=== PATIENT | male | born 1975 ===

== ENCOUNTER 2017-04-07 00:40 | Inpatient (IN) | payer MEDICARE, BC ==
[2017-04-07] MEDS ORDERED: Dextrose 50% SYRINGE Inj (50 ml) ONE (00:59)
[2017-04-07] MEDS ORDERED: Dextrose 50% SYRINGE Inj (50 ml) IV STA (01:00)
[2017-04-07 01:39] LABS: BASO # 0.1 K/uL (0.0-0.2); EOS # 0.1 K/uL (0.0-0.7); HEMATOCRIT 22.8 % (35.0-51.0); LYMPH # 0.8 K/uL (1.0-4.3); LYMPH % 11.9 % (20.0-40.0); MEAN CELL VOLUME 95.2 fL (80.0-94.0); MEAN CORPUSCULAR HEMOGLOBIN 31.2 pg (27.0-31.0); MEAN CORPUSCULAR HGB CONC 32.8 g/dL (33.0-37.0); MEAN PLATELET VOLUME 7.7 fL (7.2-11.7); MONO # 0.5 K/uL (0.0-0.8); MONO % 7.3 % (0.0-10.0); RED CELL DISTRIBUTION WIDTH 14.7 % (11.5-14.5); WHITE BLOOD COUNT 6.3 K/uL (4.8-10.8)
[2017-04-07 01:52] LABS: ALCOHOL SERUM < 10 mg/dl (0-10); ALKALINE PHOSPHATASE 35 U/L (38-126); ALT/SGPT 30 U/L (21-72); AST/SGOT 18 U/L (17-59); BILIRUBIN,TOTAL 0.2 mg/dL (0.2-1.3); BLOOD UREA NITROGEN 24 mg/dL (9-20); CARBON DIOXIDE 15 mmol/L (22-30); CHLORIDE 113 mmol/L (98-107); GFR AFRICAN-AMERICAN 14; GLUCOSE,RANDOM 79 mg/dL (75-110); SODIUM 143 mmol/L (132-148); TOTAL PROTEIN 4.2 g/dL (6.3-8.3)
[2017-04-07 01:58] LABS: POTASSIUM 2.3 mmol/L (3.6-5.2)
[2017-04-07 01:59] LABS: CALCIUM 5.3 mg/dl (8.6-10.4)
[2017-04-07 02:39] LABS: POTASSIUM 4.6 mmol/L (3.6-5.2)
[2017-04-07 02:43] LABS: CALCIUM 9.4 mg/dl (8.6-10.4)
[2017-04-07] MEDS ORDERED: Nitroglycerin 2% Ointment Foilpak UD TOP STA (04:32)
[2017-04-07] MEDS ORDERED: Nitroglycerin 2% Ointment Foilpak UD TOP ONE (04:52)
--- NOTE | 2017-04-07 05:08 | C.PDOC ---
History Of Present Illness Pt states that his glucose was dropping at home tonight so he turned off his insulin pump and ate some cookies, but his glucose continued to drop nonetheless. EMS were called, but they thought his AMS is due to drug abuse. Pt was taken to [facility] but EMS was informed that the hospital was on diversion so they brought him here. Here we found him to be hypoglycemic and we gave him D50 with improvement in mental status. 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) Current Symptoms Are (Timing): Still Present Usual Baseline: Alert Oriented, Ambulatory Exacerbating Factor(s): Diabetic Severity: Moderate Additional History Per: Prior Records Associated Symptoms: Disoriented, Confused, Agitated Past Medical History Reviewed: Historical Data, Nursing Documentation, Vital Signs Vital Signs: Last Vital Signs Temp 98.1 F 04/07/17 04:33 Pulse 106 H 04/07/17 04:33 Resp 23 04/07/17 04:33 BP 180/81 H 04/07/17 04:33 Pulse Ox 95 04/07/17 04:33 - Medical History PMH: Anemia, Anxiety, Depression, Diabetes (Types I), HTN, Hypercholesterolemia , End Stage Renal Disease (on dialysis), Chronic Kidney Disease - [facility] Procedures HEMODIALYSIS (12/22/14) OTHER SKIN & SUBQ I D (04/19/15) PACKED CELL TRANSFUSION (12/22/14) PERFORMANCE OF URINARY FILTRATION, MULTIPLE (08/29/16) PERFORMANCE OF URINARY FILTRATION, SINGLE (12/18/16) REMOV THOR THER DEV NEC (12/22/14) VACCINATION NEC (12/22/14) VENOUS CATHETERIZATION FOR RENAL DIALYSIS (12/22/14) Family History: States: Unknown Family Hx - Social History Hx Tobacco Use: Yes Hx Alcohol Use: No Hx Substance Use: Yes (Smokes Marijuana) Review Of Systems Except As Marked, All Systems Reviewed And Found Negative. Constitutional: Negative for: Fever Respiratory: Negative for: Shortness of Breath Gastrointestinal: Negative for: Abdominal Pain Musculoskeletal: Negative for: Neck Pain Skin: Negative for: Rash Neurological: Negative for: Weakness, Numbness, Headache Physical Exam - Physical Exam Appears: In Acute Distress, Chronically Ill Skin: Normal Color, Warm, Dry Head: Atraumatic, Normacephalic Eye(s): bilateral: PERRL, EOMI Neck: Normal ROM, Supple Cardiovascular: Rhythm Regular Respiratory: Normal Breath Sounds, No Accessory Muscle Use Gastrointestinal/Abdominal: Soft, No Tenderness Back: No CVA Tenderness Extremity: Normal ROM, Other (Dialysis fistula in left arm) Neurological/Psych: Oriented x3, Normal Motor, Normal Sensation ED Course And Treatment - Laboratory Results Result Diagrams: 04/07/17 01:35 04/07/17 02:29 Lab Interpretation: Abnormal Interpretation Of Abnormal: Renal failure. ECG: Interpreted By Me, Viewed By Me ECG Rhythm: Sinus Rhythm, Nonspecific Changes ECG Interpretation: No Acute Changes Rate From EC O2 Sat by Pulse Oximetry: 95 Pulse Ox Interpretation: Normal - Radiology CXR: Interpreted by Me, Viewed By Me CXR Interpretation: Yes: No Acute Disease Progress Note: During ED stay pt started c/o chest pain. EKG was repeated and showed sinus tachycardia at 117bpm but no ischemic changes. Progress - Interventions Interventions:: Observation, Oxygen - Medications Administered Oral: Aspirin Intravenous: Antiemetic, Other (D50) - Data Reviewed Data Reviewed: Lab, Diagnostic imaging, EKG, Old records - Critical Care Citical Care: Excluding Proc Time Critical Care Time: 60 minutes - Continuity of Care Discussed patient case with:: Patient, Family-HIPPA compliant, ED Nurse, On- call PMD-pt unassigned Disposition Discussed With : Ish Garcia Comment: He accepted pt on his service and gave admitting orders to the nurse. Doctor Will See Patient In The: Hospital Counseled Patient/Family Regarding: Studies Performed, Diagnosis - Disposition Disposition: HOSPITALIZED Disposition Time: 05:13 Condition: GUARDED - Clinical Impression Clinical Impression: Hypoglycemia, ESRD (end stage renal disease) on dialysis, Chest pain, Diabetes type I
[2017-04-07] MEDS: (Novolog) Insulin Aspart, Recombinant 100 u/ml 10 ml vial SC SCH ×6 (06:20→23:45)
[2017-04-07] MEDS ORDERED: (Novolog) Insulin Aspart, Recombinant 100 u/ml 10 ml vial ONE ×3 (06:24→15:36)
--- NOTE | 2017-04-07 08:51 | RAD ---
HISTORY: Hypoglycemia. ESRD COMPARISON: No prior. TECHNIQUE: Chest PA and lateral FINDINGS: LUNGS: No active pulmonary disease. PLEURA: No significant pleural effusion identified. No pneumothorax apparent. CARDIOVASCULAR: Normal. OSSEOUS STRUCTURES: No significant abnormalities. VISUALIZED UPPER ABDOMEN: Normal. OTHER FINDINGS: None. IMPRESSION: No active disease.
[2017-04-07] MEDS: Pantoprazole 40 mg EC Tab PO SCH (09:49)
--- NOTE | 2017-04-07 13:39 | CP.PCM.CON ---
History of Present Illness - History of Present Illness History of Present Illness: I was asked to see patient by Dr. Garcia. Patient is a 41 year old male with PMH HTN IDDm who presents with syncope. Patient is on insulin pump for DMand has had previous admissions to [facility] for syncope and hypoglycemia. Patient states he was watching a movie when he had a syncopal event. The patient describes a passing out. No preceding chest pain or palpitations were noted. The patient denies trauma. Review of Systems - Constitutional Constitutional: Fatigue, Weakness - EENT Eyes: absent: As Per HPI, Blind Spots, Blurred Vision, Change in Vision, Decreased Night Vision, Diplopia, Discharge, Dry Eye, Exophthalmos, Floaters, Irritation, Itchy Eyes, Loss of Peripheral Vision, Pain, Photophobia, Requires Corrective Lenses, Sees Flashes, Spots in Vision, Tunnel Vision, Other Visual Disturbances, Loss of Vision, Other Ears: absent: As Per HPI, Decreased Hearing, Ear Discharge, Ear Pain, Tinnitus, Abnormal Hearing, Disequilibrium, Dizziness, Other Nose/Mouth/Throat: absent: As Per HPI, Epistaxis, Nasal Congestion, Nasal Discharge, Nasal Obstruction, Nasal Trauma, Nose Pain, Post Nasal Drip, Sinus Pain, Sinus Pressure, Bleeding Gums, Change in Voice, Dental Pain, Dry Mouth, Dysphagia, Halitosis, Hoarsness, Lip Swelling, Mouth Lesions, Mouth Pain, Odynophagia, Sore Throat, Throat Swelling, Tongue Swelling, Facial Pain, Neck Pain, Neck Mass, Other - Cardiovascular Cardiovascular: Syncope - Respiratory Respiratory: absent: As Per HPI, Cough, Dyspnea, Hemoptysis, Dyspnea on Exertion , Wheezing, Snoring, Stridor, Pain on Inspiration, Chest Congestion, Excessive Mucous Production, Change in Mucous Color, Pain with Coughing, Other - Gastrointestinal Gastrointestinal: absent: As Per HPI, Abdominal Pain, Belching, Bloating, Change in Bowel Habits, Change in Stool Character, Coffee Ground Emesis, Constipation, Cramping, Diarrhea, Dyspepsia, Dysphagia, Early Satiety, Excessive Flatus, Fecal Incontinence, Heartburn, Hematemesis, Hematochezia, Loose Stools, Melena, Nausea, Odynophagia, Temesmus, Vomiting, Other - Musculoskeletal Musculoskeletal: absent: As Per HPI, Abnormal Gait, Arthralgias, Atrophy, Back Pain, Deformity, Joint Swelling, Limited Range of Motion, Loss of Height, Muscle Cramps, Muscle Weakness, Myalgias, Neck Pain, Numbness, Radiating Pain into Limb, Stiffness, Tingling, Other - Integumentary Integumentary: absent: As Per HPI, Acne, Alopecia, Bleeding Lesions, Change in Hair, Change in Nails, Change in Pigmentation, Changing Lesions, Dry Skin, Erythema, Furuncle, Hirsutism, Lesions, New Lesions, Non-Healing Lesions, Photosensitivity, Pruritus, Rash, Skin Pain, Skin Ulcer, Sores, Striae, Swelling , Unusual Bruising, Wounds, Jaundice, Other - Neurological Neurological: absent: As Per HPI, Abnormal Gait, Abnormal Hearing, Abnormal Movements, Abnormal Speech, Behavioral Changes, Burning Sensations, Confusion, Convulsions, Disequilibrium, Dizziness, Numbness, Focal Weakness, Frequent Falls , Headaches, Lack of Coordination, Loss of Vision, Memory Loss, Paresthesias, Radicular Pain, Restless Legs, Sensory Deficit, Syncope, Tingling, Tremor, Vertigo, Weakness, Other Visual Disturbances, Other - Psychiatric Psychiatric: absent: As Per HPI, Abnormal Sleep Pattern, Anhedonia, Anxiety, Auditory Hallucinations, Behavioral Changes, Change in Appetite, Change in Libido, Confusion, Depression, Difficulty Concentrating, Hallucinations, Homicidal Ideation, Hopelessness, Irritability, Memory Loss, Mood Swings, Panic Attacks, Paranoia, Suicidal Ideation, Visual Hallucinations, Tactile Hallucinations, Other - Endocrine Endocrine: absent: As Per HPI, Change in Body Appearance, Change in Libido, Cold Intolorance, Deepening of Voice, Excessive Sweating, Fatigue, Flushing, Heat Intolorance, Increase in Ring/Shoe/Hat Size, Palpitations, Polydipsia, Polyphagia, Polyuria, Other - Hematologic/Lymphatic Hematologic: absent: As Per HPI, Easy Bleeding, Easy Bruising, Lymphadenopathy, Other Past Patient History - Infectious Disease Hx of Infectious Diseases: None - Past Medical History & Family History Past Medical History?: Yes - Past Social History Smoking Status: Heavy Smoker > 10 Cigarettes Daily - CARDIAC Hx Hypercholesterolemia: Yes Hx Hypertension: Yes - PULMONARY Hx Asthma: No Hx Bronchitis: No Hx Chronic Obstructive Pulmonary Disease (COPD): No Hx Emphysema: No Hx Pneumonia: No Hx Pulmonary Embolism: No Hx Sleep Apnea: No - NEUROLOGICAL Hx Alzheimer's Disease: No Hx Dementia: No Hx Migraine: No Hx Multiple Sclerosis: No Hx Parkinson's Disease: No Hx Seizures: No Hx Transient Ischemic Attacks (TIA): No - HEENT Hx HEENT Problems: No - RENAL Hx Chronic Kidney Disease: Yes - ENDOCRINE/METABOLIC Hx Hyperthyroidism: No Hx Hypothyroidism: No - HEMATOLOGICAL/ONCOLOGICAL Hx Anemia: Yes - INTEGUMENTARY Hx Dermatological Problems: No Other/Comment: H/O skin abscesses - MUSCULOSKELETAL/RHEUMATOLOGICAL Hx Arthritis: No Hx Fractures: No Hx Osteoporosis: No Hx Rheumatoid Arthritis: No - GASTROINTESTINAL Hx Crohn's Disease: No Hx Diverticulitis: No Hx Gall Bladder Disease: No Hx Gastritis: No Hx Pancreatitis: No - GENITOURINARY/GYNECOLOGICAL Hx Sexually Transmitted Disorders: No - PSYCHIATRIC Hx Anxiety: Yes Hx Depression: Yes Hx Substance Use: Yes (Smokes Marijuana) - SURGICAL HISTORY Hx Appendectomy: No Hx Carotid Endarterectomy: No Hx Cholecystectomy: No Hx Coronary Artery Bypass Graft: No Hx Coronary Stent: No Hx Tonsillectomy: No - ANESTHESIA Hx Anesthesia: Yes Hx Anesthesia Reactions: No Hx Malignant Hyperthermia: No Meds Allergies/Adverse Reactions: Allergies Allergy/AdvReac Type Severity Reaction Status Date / Time Penicillins Allergy RASH Verified 04/07/17 01:06 - Medications Medications: Current Medications Amlodipine Besylate (Norvasc) 10 mg PO DAILY [facility] Last Admin: 04/07/17 09:49 Dose: 10 mg Aspirin (Aspirin Chewable) 81 mg PO DAILY [facility] Last Admin: 04/07/17 09:49 Dose: 81 mg Clonazepam (Klonopin) 0.5 mg PO [facility] Clonazepam (Klonopin) 0.5 mg PO DAILY [facility] Last Admin: 04/07/17 09:49 Dose: 0.5 mg Clonidine HCl (Catapres) 0.1 mg PO [facility] Clopidogrel Bisulfate (Plavix) 75 mg PO DAILY [facility] Last Admin: 04/07/17 10:57 Dose: Not Given Fluoxetine HCl (Prozac) 40 mg PO BID [facility] Last Admin: 04/07/17 12:27 Dose: 40 mg Heparin Sodium (Porcine) (Heparin) 5,000 units SC Q12 [facility] Last Admin: 04/07/17 10:56 Dose: Not Given Insulin Aspart (Novolog) 0 unit SC ACHS [facility] PRN Reason: Protocol Last Admin: 04/07/17 10:20 Dose: 4 unit Insulin Detemir (Levemir) 10 unit SC DAILY [facility] Stop: 10/01/17 10:01 Losartan Potassium (Cozaar) 50 mg PO DAILY [facility] Last Admin: 04/07/17 09:49 Dose: 50 mg Pantoprazole Sodium (Protonix Ec Tab) 40 mg PO DAILY [facility] Last Admin: 04/07/17 09:49 Dose: 40 mg Sevelamer Carbonate (Renvela) 800 mg PO TID [facility] Last Admin: 04/07/17 09:50 Dose: 800 mg Physical Exam - Constitutional Appears: Non-toxic - Head Exam Head Exam: NORMAL INSPECTION - Eye Exam Eye Exam: Normal appearance - ENT Exam ENT Exam: Mucous Membranes Moist - Neck Exam Neck exam: Positive for: Full Rom - Respiratory Exam Respiratory Exam: NORMAL BREATHING PATTERN - Cardiovascular Exam Cardiovascular Exam: REGULAR RHYTHM - GI/Abdominal Exam GI & Abdominal Exam: Normal Bowel Sounds - Rectal Exam Rectal Exam: Deferred - Extremities Exam Extremities exam: Negative for: pedal edema - Back Exam Back exam: NORMAL INSPECTION - Neurological Exam Neurological exam: Alert, Oriented x3 - Psychiatric Exam Psychiatric exam: Normal Affect - Skin Skin Exam: Normal Color Results - Vital Signs Recent Vital Signs: Last Vital Signs Temp 98.1 F 04/07/17 04:33 Pulse 92 H 04/07/17 12:46 Resp 16 04/07/17 12:46 BP 147/78 04/07/17 12:46 Pulse Ox 96 04/07/17 12:46 - Labs Result Diagrams: 04/07/17 01:35 04/07/17 02:29 Labs: Laboratory Results - last 24 hr 04/07/17 04/07/17 04/07/17 05:23 06:06 09:02 PT 11.4 INR 1.0 APTT 32 POC Glucose (mg/dL) 405 H* 279 H Total Creatine Kinase CK-MB (Mass) Troponin I, Quant 04/07/17 04/07/17 04/07/17 09:11 10:15 11:18 PT INR APTT POC Glucose (mg/dL) 339 H 371 H Total Creatine Kinase 1057 H CK-MB (Mass) 10.5 H Troponin I, Quant 0.1100 Assessment & Plan (1) Syncope Assessment and Plan: unclear etiology. admit to telemetry. check echocardiogram Status: Acute (2) Diabetes type I Assessment and Plan: monitor glucose carefully Status: Acute (3) Hypertension Assessment and Plan: blood pressure control Status: Chronic Priority: Low - Date & Time Date: 04/07/17 Time: 14:00
[2017-04-08] MEDS: (Novolog) Insulin Aspart, Recombinant 100 u/ml 10 ml vial SC SCH ×3 (08:15→17:45)
[2017-04-08] MEDS ORDERED: Insulin Detemir 100 units/ml Vial (Levemir) SC SCH (10:00)
[2017-04-08] MEDS: Pantoprazole 40 mg EC Tab PO SCH (10:54)
[2017-04-08 11:37] LABS: BASO % 0.2 % (0.0-2.0); EOS % 0.1 % (0.0-4.0); HEMATOCRIT 32.2 % (35.0-51.0); LYMPH # 1.5 K/uL (1.0-4.3); LYMPH % 9.9 % (20.0-40.0); MEAN CELL VOLUME 93.7 fL (80.0-94.0); MEAN CORPUSCULAR HEMOGLOBIN 31.6 pg (27.0-31.0); MEAN CORPUSCULAR HGB CONC 33.7 g/dL (33.0-37.0); MEAN PLATELET VOLUME 8.4 fL (7.2-11.7); MONO % 6.7 % (0.0-10.0); PLATELET COUNT 229 K/uL (130-400); RED CELL DISTRIBUTION WIDTH 14.7 % (11.5-14.5)
[2017-04-08 11:42] LABS: ALB/GLOB RATIO 1.5 (1.0-2.1); BILIRUBIN,TOTAL 0.6 mg/dL (0.2-1.3); CALCIUM 9.8 mg/dl (8.6-10.4); PHOSPHOROUS 5.8 mg/dL (2.5-4.5); TOTAL PROTEIN 6.8 g/dL (6.3-8.3)
[2017-04-08 11:48] LABS: WHITE BLOOD COUNT 15.2 K/uL (4.8-10.8)
[2017-04-08 11:58] LABS: POTASSIUM 6.5 mmol/L (3.6-5.2)
[2017-04-08] MEDS ORDERED: Sod Polystyrene Sulf 15 gm/60 ml Oral Susp PO STA (12:12)
[2017-04-08 12:19] LABS: TOTAL CELLS COUNTED 100
[2017-04-08 12:20] LABS: NEUTROPHIL 87 % (50-75)
--- NOTE | 2017-04-08 12:26 | CP.PCM.CON ---
History of Present Illness - History of Present Illness History of Present Illness: 41 y/o male with ESRD on maintenance HD MWF, IDDM,HTN was admitted yesterday for hypoglycemia & altered mental status Renal consult is requested for Mx of ESRD Past Patient History - Infectious Disease Hx of Infectious Diseases: None - Past Medical History & Family History Past Medical History?: Yes - Past Social History Smoking Status: Heavy Smoker > 10 Cigarettes Daily - CARDIAC Hx Hypercholesterolemia: Yes Hx Hypertension: Yes - PULMONARY Hx Asthma: No Hx Bronchitis: No Hx Chronic Obstructive Pulmonary Disease (COPD): No Hx Emphysema: No Hx Pneumonia: No Hx Pulmonary Embolism: No Hx Sleep Apnea: No - NEUROLOGICAL Hx Alzheimer's Disease: No Hx Dementia: No Hx Migraine: No Hx Multiple Sclerosis: No Hx Parkinson's Disease: No Hx Seizures: No Hx Transient Ischemic Attacks (TIA): No - HEENT Hx HEENT Problems: No - RENAL Hx Chronic Kidney Disease: Yes Hx Dialysis: Yes Type of Dialysis Access: AVF - ENDOCRINE/METABOLIC Hx Hyperthyroidism: No Hx Hypothyroidism: No - HEMATOLOGICAL/ONCOLOGICAL Hx Anemia: Yes - INTEGUMENTARY Hx Dermatological Problems: No Other/Comment: H/O skin abscesses - MUSCULOSKELETAL/RHEUMATOLOGICAL Hx Arthritis: No Hx Fractures: No Hx Osteoporosis: No Hx Rheumatoid Arthritis: No - GASTROINTESTINAL Hx Crohn's Disease: No Hx Diverticulitis: No Hx Gall Bladder Disease: No Hx Gastritis: No Hx Pancreatitis: No - GENITOURINARY/GYNECOLOGICAL Hx Sexually Transmitted Disorders: No - PSYCHIATRIC Hx Anxiety: Yes Hx Depression: Yes Hx Substance Use: Yes (Smokes Marijuana) - SURGICAL HISTORY Hx Appendectomy: No Hx Carotid Endarterectomy: No Hx Cholecystectomy: No Hx Coronary Artery Bypass Graft: No Hx Coronary Stent: No Hx Tonsillectomy: No - ANESTHESIA Hx Anesthesia: Yes Hx Anesthesia Reactions: No Hx Malignant Hyperthermia: No Meds Home Medications: Home Medication List Medication Instructions Recorded Confirmed Type Aspirin [Aspirin Chewable] 81 mg PO DAILY 04/08/17 Rx Clopidogrel [Plavix] 75 mg PO DAILY tab 04/08/17 Rx Sevelamer Carbonate [Renvela] 2,400 mg PO [facility] tab 04/08/17 Rx Allergies/Adverse Reactions: Allergies Allergy/AdvReac Type Severity Reaction Status Date / Time Penicillins Allergy RASH Verified 04/07/17 01:06 - Medications Medications: Current Medications Amlodipine Besylate (Norvasc) 10 mg PO DAILY [facility] Last Admin: 04/08/17 10:54 Dose: 10 mg Aspirin (Aspirin Chewable) 81 mg PO DAILY [facility] Last Admin: 04/08/17 10:52 Dose: 81 mg Clonazepam (Klonopin) 0.5 mg PO F [facility] Clonazepam (Klonopin) 0.5 mg PO DAILY [facility] Last Admin: 04/08/17 10:54 Dose: 0.5 mg Clonazepam (Klonopin) 0.5 mg PO Q8 PRN PRN Reason: Anxiety Last Admin: 04/07/17 23:45 Dose: 0.5 mg Clonidine HCl (Catapres) 0.1 mg PO HS [facility] Last Admin: 04/07/17 21:21 Dose: 0.1 mg Clopidogrel Bisulfate (Plavix) 75 mg PO DAILY [facility] Last Admin: 04/08/17 10:55 Dose: 75 mg Fluoxetine HCl (Prozac) 40 mg PO BID [facility] Last Admin: 04/08/17 10:55 Dose: 40 mg Heparin Sodium (Porcine) (Heparin) 5,000 units SC Q12 [facility] Last Admin: 04/08/17 11:01 Dose: Not Given Insulin Aspart (Novolog) 0 unit SC [facility] PRN Reason: Protocol Last Admin: 04/08/17 08:15 Dose: 6 unit Insulin Detemir (Levemir) 10 unit SC DAILY [facility] Stop: 04/21/17 10:01 Last Admin: 04/08/17 11:00 Dose: 10 unit Losartan Potassium (Cozaar) 50 mg PO DAILY [facility] Last Admin: 04/08/17 10:53 Dose: Not Given Ondansetron HCl (Zofran Inj) 4 mg IVP Q6 PRN PRN Reason: Nausea/Vomiting Last Admin: 04/08/17 11:00 Dose: 4 mg Pantoprazole Sodium (Protonix Ec Tab) 40 mg PO DAILY [facility] Last Admin: 04/08/17 10:54 Dose: 40 mg Sevelamer Carbonate (Renvela) 2,400 mg PO TIDCC [facility] Last Admin: 04/08/17 08:16 Dose: Not Given Physical Exam - Constitutional Appears: No Acute Distress Additional comments: Alert & orientd - Head Exam Head Exam: ATRAUMATIC, NORMOCEPHALIC - Eye Exam Eye Exam: Normal appearance Additional comments: Sclera anicteric - ENT Exam ENT Exam: Mucous Membranes Moist - Neck Exam Additional comments: Neck supple - Respiratory Exam Respiratory Exam: NORMAL BREATHING PATTERN Additional comments: Lungs clear - Cardiovascular Exam Cardiovascular Exam: REGULAR RHYTHM - GI/Abdominal Exam GI & Abdominal Exam: Soft Additional comments: No tenderness - Extremities Exam Additional comments: No edema or cyanosis Results - Vital Signs Recent Vital Signs: Last Vital Signs Temp 98.2 F 04/08/17 08:03 Pulse 94 H 04/08/17 08:03 Resp 20 04/08/17 08:03 BP 182/75 H 04/08/17 08:03 Pulse Ox 96 04/08/17 08:03 - Labs Result Diagrams: 04/08/17 11:19 04/08/17 11:19 Labs: Laboratory Results - last 24 hr 04/07/17 04/07/17 04/07/17 14:14 14:53 15:37 WBC RBC Hgb Hct MCV MCH MCHC RDW Plt Count MPV Neut % (Auto) Lymph % (Auto) Schleicher % (Auto) Eos % (Auto) Baso % (Auto) Neut # Lymph # Schleicher # Eos # Baso # Sodium Potassium Chloride Carbon Dioxide Anion Gap BUN Creatinine Est GFR ( Amer) Est GFR (Non-Af Amer) POC Glucose (mg/dL) 364 H 389 H Random Glucose Calcium Phosphorus Magnesium Total Bilirubin AST ALT Alkaline Phosphatase Total Creatine Kinase 864 H CK-MB (Mass) 7.31 H Troponin I, Quant 0.0980 Total Protein Albumin Globulin Albumin/Globulin Ratio 04/07/17 04/07/17 04/07/17 16:30 21:30 22:58 WBC RBC Hgb Hct MCV MCH MCHC RDW Plt Count MPV Neut % (Auto) Lymph % (Auto) Schleicher % (Auto) Eos % (Auto) Baso % (Auto) Neut # Lymph # Schleicher # Eos # Baso # Sodium Potassium Chloride Carbon Dioxide Anion Gap BUN Creatinine Est GFR ( Amer) Est GFR (Non-Af Amer) POC Glucose (mg/dL) 405 H* 217 H 314 H Random Glucose Calcium Phosphorus Magnesium Total Bilirubin AST ALT Alkaline Phosphatase Total Creatine Kinase CK-MB (Mass) Troponin I, Quant Total Protein Albumin Globulin Albumin/Globulin Ratio 04/08/17 04/08/17 04/08/17 02:00 03:53 06:41 WBC RBC Hgb Hct MCV MCH MCHC RDW Plt Count MPV Neut % (Auto) Lymph % (Auto) Schleicher % (Auto) Eos % (Auto) Baso % (Auto) Neut # Lymph # Schleicher # Eos # Baso # Sodium Potassium Chloride Carbon Dioxide Anion Gap BUN Creatinine Est GFR ( Amer) Est GFR (Non-Af Amer) POC Glucose (mg/dL) 304 H 382 H 302 H Random Glucose Calcium Phosphorus Magnesium Total Bilirubin AST ALT Alkaline Phosphatase Total Creatine Kinase CK-MB (Mass) Troponin I, Quant Total Protein Albumin Globulin Albumin/Globulin Ratio 04/08/17 04/08/17 04/08/17 08:08 11:19 11:19 WBC 15.2 H D RBC 3.43 L Hgb 10.8 L D Hct 32.2 L MCV 93.7 MCH 31.6 H MCHC 33.7 RDW 14.7 H Plt Count 229 MPV 8.4 Neut % (Auto) 83.1 H Lymph % (Auto) 9.9 L Schleicher % (Auto) 6.7 Eos % (Auto) 0.1 Baso % (Auto) 0.2 Neut # 12.6 H Lymph # 1.5 Schleicher # 1.0 H Eos # 0.0 Baso # 0.0 Sodium 128 L Potassium 6.5 H* D Chloride 83 L Carbon Dioxide 21 L Anion Gap 30 H BUN 84 H Creatinine 12.7 H* D Est GFR ( Amer) 5 Est GFR (Non-Af Amer) 4 POC Glucose (mg/dL) 347 H Random Glucose 260 H Calcium 9.8 Phosphorus 5.8 H Magnesium 3.0 H Total Bilirubin 0.6 AST 33 ALT 30 Alkaline Phosphatase 60 Total Creatine Kinase CK-MB (Mass) Troponin I, Quant Total Protein 6.8 Albumin 4.0 Globulin 2.7 Albumin/Globulin Ratio 1.5 04/08/17 11:44 WBC RBC Hgb Hct MCV MCH MCHC RDW Plt Count MPV Neut % (Auto) Lymph % (Auto) Schleicher % (Auto) Eos % (Auto) Baso % (Auto) Neut # Lymph # Schleicher # Eos # Baso # Sodium Potassium Chloride Carbon Dioxide Anion Gap BUN Creatinine Est GFR ( Amer) Est GFR (Non-Af Amer) POC Glucose (mg/dL) 296 H Random Glucose Calcium Phosphorus Magnesium Total Bilirubin AST ALT Alkaline Phosphatase Total Creatine Kinase CK-MB (Mass) Troponin I, Quant Total Protein Albumin Globulin Albumin/Globulin Ratio Assessment & Plan - Assessment and Plan (Free Text) Assessment: ESRD, Hyperkalemis Hyponatremia possibly dilutional from relative volume overload IDDM Leukocytosis source unclear Plan: Pt finally agrees for dialysis Gave consent Dialysis orders entered
--- NOTE | 2017-04-08 12:55 | HP ---
HISTORY OF PRESENT ILLNESS: Mr. Almonte is a 41-year-old male with history of chronic renal failure, insulin-dependent diabetes, chief complaint hypoglycemia. The patient is on insulin pump. Today, we have been following his intake and caloric count, he gets occasional hypoglycemia. The patient was complaining of some chest pain when he came to the ER, which resolved spontaneously. PHYSICAL EXAMINATION: GENERAL: The patient is awake, alert and oriented. VITAL SIGNS: Temperature 98 and pulse 90. HEENT: Within normal limits. NECK: Supple. CHEST: Symmetrical. HEART: Regular. ABDOMEN: Soft. EXTREMITIES: There is an AV fistula on the left arm. IMPRESSION: The patient has hypoglycemia, brittle diabetes. The patient is getting insulin coverage. Monitor blood sugar and add Levemir insulin. Cardiac enzymes . Ish Garcia MD
--- NOTE | 2017-04-08 13:20 | CP.PCM.PN ---
Subjective - Date & Time of Evaluation Date of Evaluation: 04/08/17 Time of Evaluation: 13:15 - Subjective Subjective: Progress note. Attending: Dr. Garcia This is a 41 yo male with past medical hx of IDDM on insulin pump at home, ESRD on HD, depression, HTN, anxiety presenting from home after pt syncopized. Pt became hypoglycemic and had syncopal episode. Currently, pt has no complaints and wants to go home. He was refusing HD this morning and was saying he would get it outpatient. However, pt hyperkalemic and nephrology has advised him to stay, give kayexalate , and get dialysis here. Denies fevers, chills, vomiting, diarrhea, not currently dizzy or light headed. PMH: ESRD, HTN, depression, anxiety, DM PSH: AV fistula left arm Allergies: PCN FH: Denies Social hx: Current smoker. Denies drinking. Uses marijuana. Lives with parents. Objective - Vital Signs/Intake and Output Vital Signs (last 24 hours): Temp Pulse Resp BP Pulse Ox 98.2 F 94 H 20 182/75 H 96 04/08/17 08:03 04/08/17 08:03 04/08/17 08:03 04/08/17 08:03 04/08/17 08:03 Intake and Output: 04/08/17 04/08/17 06:59 18:59 Intake Total 600 Balance 600 - Medications Medications: Current Medications Amlodipine Besylate (Norvasc) 10 mg PO DAILY [facility] Last Admin: 04/08/17 10:54 Dose: 10 mg Aspirin (Aspirin Chewable) 81 mg PO DAILY [facility] Last Admin: 04/08/17 10:52 Dose: 81 mg Clonazepam (Klonopin) 0.5 mg PO MWF [facility] Clonazepam (Klonopin) 0.5 mg PO DAILY [facility] Last Admin: 04/08/17 10:54 Dose: 0.5 mg Clonazepam (Klonopin) 0.5 mg PO Q8 PRN PRN Reason: Anxiety Last Admin: 04/07/17 23:45 Dose: 0.5 mg Clonidine HCl (Catapres) 0.1 mg PO HS [facility] Last Admin: 04/07/17 21:21 Dose: 0.1 mg Clopidogrel Bisulfate (Plavix) 75 mg PO DAILY [facility] Last Admin: 04/08/17 10:55 Dose: 75 mg Fluoxetine HCl (Prozac) 40 mg PO BID [facility] Last Admin: 04/08/17 10:55 Dose: 40 mg Heparin Sodium (Porcine) (Heparin) 5,000 units SC Q12 [facility] Last Admin: 04/08/17 11:01 Dose: Not Given Insulin Aspart (Novolog) 0 unit SC ACHS [facility] PRN Reason: Protocol Last Admin: 04/08/17 12:36 Dose: 4 unit Insulin Detemir (Levemir) 10 unit SC DAILY [facility] Stop: 04/21/17 10:01 Last Admin: 04/08/17 11:00 Dose: 10 unit Lidocaine/Prilocaine (Emla) 2.5 gm TOP F [facility] Losartan Potassium (Cozaar) 50 mg PO DAILY [facility] Last Admin: 04/08/17 10:53 Dose: Not Given Ondansetron HCl (Zofran Inj) 4 mg IVP Q6 PRN PRN Reason: Nausea/Vomiting Last Admin: 04/08/17 11:00 Dose: 4 mg Pantoprazole Sodium (Protonix Ec Tab) 40 mg PO DAILY [facility] Last Admin: 04/08/17 10:54 Dose: 40 mg Sevelamer Carbonate (Renvela) 2,400 mg PO TIDCC [facility] Last Admin: 04/08/17 08:16 Dose: Not Given - Labs Labs: 04/08/17 11:19 04/08/17 11:19 PT 11.4 SECONDS (9.7-12.2) 04/07/17 05:23 INR 1.0 04/07/17 05:23 APTT 32 SECONDS (21-34) 04/07/17 05:23 - Constitutional Appears: Non-toxic, No Acute Distress - Head Exam Head Exam: ATRAUMATIC, NORMAL INSPECTION, NORMOCEPHALIC - Eye Exam Eye Exam: EOMI - ENT Exam ENT Exam: Mucous Membranes Moist - Neck Exam Neck Exam: Full ROM, Normal Inspection - Respiratory Exam Respiratory Exam: NORMAL BREATHING PATTERN. absent: Respiratory Distress - Cardiovascular Exam Cardiovascular Exam: +S1, +S2 - GI/Abdominal Exam GI & Abdominal Exam: Soft, Normal Bowel Sounds. absent: Tenderness - Extremities Exam Extremities Exam: Full ROM. absent: Normal Inspection Additional comments: AV fistula left arm - Neurological Exam Neurological Exam: Alert, Awake, Oriented x3 - Psychiatric Exam Psychiatric exam: Flat Affect - Skin Skin Exam: Dry, Intact, Normal Color, Warm Assessment and Plan - Assessment and Plan (Free Text) Assessment: This is a 41 yo male with past medical hx of HTN, IDDM, depression, anxiety, ESRD on HD presenting with hypoglycemia and syncope. 1. Syncope -likely secondary to hypoglycemia -resolved -echo pending -cardiology consulted. recs appreciated -continue asa daily -continue plavix daily -monitor on tele 2. hx of ESRD -Dr. Krishnamurthy consulted. recs appreciated -pt hyperkalemic today -will give one dose of kayexalate -dialysis today -continue sevelamer 3. hx of DM -continue ISS -levemir 10 units SC daily 4. hypoglycemia -given amp of D50 earlier in the morning -continue to monitor 5. Hx of HTN -cont norvasc 10 -clonidine .1 PO HS EVELIA -losartan 50 6. hx of anxiety -continue home klonopin regimen 7. hx of depression -cont fluoxetine daily 8. GI/DVT ppx -heparin 5000 SC -protonix daily -zofran discussed with Dr. Garcia
--- NOTE | 2017-04-08 15:58 | CARD ---
APPROVED REPORT EKG Measurement Heart [id number] <Conclusion> Sinus tachycardia Minimal voltage criteria for LVH, may be normal variant Borderline ECG
--- NOTE | 2017-04-08 15:58 | CARD ---
APPROVED REPORT EKG Measurement Heart [id number] <Conclusion> Normal sinus rhythm Possible Left atrial enlargement Left ventricular hypertrophy Prolonged QT Abnormal ECG
[2017-04-08 17:42] VITALS: BP 133/67; PULSE 83; RESP 20; TEMP 98; O2SAT 98
[2017-04-08] MEDS ORDERED: Potassium Chloride 20 mEq ER Tab PO STA (20:29)
[2017-04-09] MEDS ORDERED: Potassium Chloride 20 mEq ER Tab PO ONE (20:21)
[2017-04-10] MEDS ORDERED: Lidocaine/Prilocaine 2.5%-2.5% Cream (5 gm) TOP SCH (09:00)
== END 2017-04-08 20:45 | disposition left against medical advice (07) | DRG 638 ==
LOC: C.ER 00:40 → C.9E 05:15 → C.5S 15:53
PROVIDERS: ADMIT Internal Medicine Pulmonary Disease; ATTEND Internal Medicine Pulmonary Disease
PROC: 5A1D60Z (ICD-10-PCS; principal; 2017-04-08)
DX: E10.649 Type 1 diabetes mellitus with hypoglycemia without coma (principal); E87.1 Hypo-osmolality and hyponatremia; I12.0 Hypertensive chronic kidney disease with stage 5 chronic kidney disease or end stage renal disease; E10.22 Type 1 diabetes mellitus with diabetic chronic kidney disease; N18.6 End stage renal disease; E87.5 Hyperkalemia; D72.829 Elevated white blood cell count, unspecified; R55 Syncope and collapse; R07.9 Chest pain, unspecified; F41.8 Other specified anxiety disorders; E78.00 Pure hypercholesterolemia, unspecified; F17.210 Nicotine dependence, cigarettes, uncomplicated; F12.90 Cannabis use, unspecified, uncomplicated; Z96.41 Presence of insulin pump (external) (internal); Z99.2 Dependence on renal dialysis; Z79.02 Long term (current) use of antithrombotics/antiplatelets; Z79.4 Long term (current) use of insulin